=== PATIENT | female | born 1980 | race Caucasian/White ===

== ENCOUNTER 2018-05-21 14:05 | Observation (INO) | payer OTHER ==
[~2018-05-21] VITALS: Ht 152 cm; Wt 69.9 kg
[~2018-05-21 14:05] MED LIST: PREN-61 PO
[2018-05-21] MEDS ORDERED: RINGERS SOLUTION,LACTATED 1,000 ML IV SCH (14:30)
[2018-05-21 15:15] VITALS: BP 110/75
[2018-05-21 15:15] LABS: BASOPHILS % (AUTO) 0.4 % (0.0-2.0); EOSINOPHILS % (AUTO) 0.2 % (1.0-6.0); HEMATOCRIT 39.5 % (36-46); HEMOGLOBIN 13.6 g/dL (12.0-16.0); LYMPHOCYTES # (AUTO) 1.6 K/uL (1.0-4.8); LYMPHOCYTES % (AUTO) 16.2 % (22.0-44.0); MEAN CORPUSCULAR HEMOGLOBIN 30.1 pg (26.0-34.0); MEAN CORPUSCULAR HGB CONC 34.4 G/dL (31.0-37.0); MEAN CORPUSCULAR VOLUME 87 fL (80-100); MONOCYTES # (AUTO) 0.4 K/uL (0.1-1.0); MONOCYTES % (AUTO) 4.2 % (2.0-9.0); NEUTROPHILS # (AUTO) 7.6 K/uL (1.8-7.7); PLATELET COUNT (AUTO) 250 K/uL (150-450); RED BLOOD CELL COUNT(AUTO) 4.52 MIL/uL (4.00-5.20); RED CELL DISTRIBUTION WIDTH 13.4 % (11.5-14.5)
[2018-05-21] MEDS ORDERED: CABE0.5T2 PO (15:17)
[2018-05-21 15:23] LABS: ANION GAP 11 mmol/L (8-16); CALCIUM, TOTAL 9.1 mg/dL (8.8-10.5); CARBON DIOXIDE 22 mmol/L (22-29); CHLORIDE 105 mmol/L (98-107); CREATININE 0.41 mg/dL (0.60-1.30); GLOMERULAR FILTR. RATE CALC > 60 mL/min (>60); GLUCOSE,RANDOM 79 mg/dL (70-110); SODIUM SERUM 138 mmol/L (136-145); UREA NITROGEN, BLOOD 6 mg/dL (7-18)
[2018-05-21 15:29] LABS: ALANINE AMINOTRANSFERASE 24 U/L (12-78); ALBUMIN 2.7 g/dL (3.4-5.0); ALKALINE PHOSPHATASE 190 U/L (46-116); ASPARTATE AMINOTRANSFERASE 28 U/L (15-37); BILIRUBIN,TOTAL 0.4 mg/dL (0.1-1.0); TOTAL PROTEIN, SERUM 6.4 g/dL (6.4-8.2); URIC ACID 3.3 mg/dL (2.6-7.2)
== END 2018-05-21 16:25 | disposition home or self-care (01) ==
LOC: 4S 14:05
PROVIDERS: ADMIT Obstetrics & Gynecology; ATTEND Obstetrics & Gynecology
DX: O21.2 Late vomiting of pregnancy (principal); O24.419 Gestational diabetes mellitus in pregnancy, unspecified control; O26.893 Other specified pregnancy related conditions, third trimester; R03.0 Elevated blood-pressure reading, without diagnosis of hypertension; Z3A.37 37 weeks gestation of pregnancy
CPT/HCPCS: 36415; 76805; 80053; 84550; 85025; G0378

== ENCOUNTER 2018-05-27 06:37 | Inpatient (IN) | payer OTHER ==
[~2018-05-27] VITALS: Ht 154.9 cm; Wt 69.9 kg
[~2018-05-27 06:37] MED LIST changes: +CABE0.5T2 PO
[2018-05-27] MEDS ORDERED: RINGERS SOLUTION,LACTATED 1,000 ML IV ONE ×2 (06:38→07:36)
[2018-05-27] MEDS ORDERED: METOCLOPRAMIDE HCL 5 MG/ML 2 ML VIAL IVP ONE (06:45)
[2018-05-27] MEDS ORDERED: CITRIC ACID/SODIUM CITRATE 30 ML SOLUTION UDCUP PO ONE (06:45)
[2018-05-27 07:26] LABS: BASOPHILS % (AUTO) 0.4 % (0.0-2.0); EOSINOPHILS % (AUTO) 0.6 % (1.0-6.0); HEMOGLOBIN 13.5 g/dL (12.0-16.0); LYMPHOCYTES # (AUTO) 2.3 K/uL (1.0-4.8); LYMPHOCYTES % (AUTO) 27.6 % (22.0-44.0); MEAN CORPUSCULAR HEMOGLOBIN 30.3 pg (26.0-34.0); MEAN CORPUSCULAR HGB CONC 34.7 G/dL (31.0-37.0); MEAN CORPUSCULAR VOLUME 87 fL (80-100); MONOCYTES # (AUTO) 0.6 K/uL (0.1-1.0); NEUTROPHILS # (AUTO) 5.4 K/uL (1.8-7.7); NEUTROPHILS % (AUTO) 64.4 % (40.0-70.0); PLATELET COUNT (AUTO) 234 K/uL (150-450); RED BLOOD CELL COUNT(AUTO) 4.46 MIL/uL (4.00-5.20); RED CELL DISTRIBUTION WIDTH 13.1 % (11.5-14.5)
[2018-05-27] MEDS ORDERED: LIDOCAINE/PF 2% 5 ML VIAL ONE (07:36)
[2018-05-27] MEDS ORDERED: SODIUM CHLORIDE 0.9% 1,000 ML IV ONE (07:36)
[2018-05-27] MEDS ORDERED: BUPIVACAINE HCL/DEX-WATER/PF 0.75% 2 ML AMP ONE (07:36)
[2018-05-27 08:05] LABS: GLUCOMETER DEV NAME(LOC) 4S.; GLUCOSE,POINT OF CARE 68 MG/DL (70-110)
[2018-05-27] MEDS ORDERED: *PATIENT'S OWN MED [ENTER DRUG, DOSE, FREQUENCY IN COMMENTS] CLINICAL ONE ×2 (08:15→22:00)
[2018-05-27] MEDS ORDERED: BUPIVACAINE HCL/PF 0.5% 30 ML VIAL ONE (08:22)
[2018-05-27] MEDS ORDERED: BUPIVACAINE HCL/PF 0.25% 30 ML VIAL ONE (08:23)
[2018-05-27] MEDS ORDERED: HYDROmorphone 2 MG/ML SYRINGE IVP PRN (09:00)
[2018-05-27] MEDS ORDERED: MEPERIDINE-PF 25 MG/ML VIAL IVP PRN (09:00)
[2018-05-27] MEDS ORDERED: FentaNYL CITRATE-PF 100 MCG/2 ML VIAL IVP PRN ×2 (09:00→10:00)
[2018-05-27] MEDS ORDERED: NALOXONE HCL 0.4 MG/ML VIAL IVP PRN (10:00)
[2018-05-27] MEDS ORDERED: MORPHINE SULFATE 10 MG/ML SYRINGE IVP PRN (10:00)
[2018-05-27] MEDS: RINGERS SOLUTION,LACTATED 1,000 ML IV SCH ×2 (10:00→21:29)
[2018-05-27] MEDS ORDERED: DiphenhydrAMINE HCL 50 MG/ML VIAL IVP PRN (10:00)
[2018-05-27] MEDS ORDERED: NALBUPHINE HCL 10 MG/ML VIAL IVP PRN ×2 (10:00)
[2018-05-27] MEDS ORDERED: ONDANSETRON HCL 4 MG/2 ML VIAL IVP PRN (10:00)
[2018-05-27] MEDS ORDERED: OXYTOCIN 30 UNITS/LACT RINGERS 500 ML IV ONE (10:11)
[2018-05-27] MEDS ORDERED: ACETAMINOPHEN 1000 MG/ISO-OSM 100 ML IV ONE (10:14)
[2018-05-27] MEDS ORDERED: LANOLIN 7 GM OINTMENT TP PRN (10:15)
[2018-05-27] MEDS: ACETAMINOPHEN 1000 MG/ISO-OSM 100 ML IV SCH ×2 (10:16→18:31)
[2018-05-27] MEDS: KETOROLAC TROMETHAMINE 30 MG/ML VIAL IVP SCH ×2 (15:34→21:31)
[2018-05-27] MEDS ORDERED: OXYGEN THERAPY IH SCH ×3 (20:00)
[2018-05-27] MEDS ORDERED: MAGNESIUM HYDROXIDE SUSPENSION 30 ML UDCUP PO SCH (21:00)
[2018-05-27] MEDS ORDERED: CABERGOLINE 0.5 MG PO ONE (22:00)
[2018-05-28] MEDS ORDERED: OXYTOCIN 10 UNITS/ML VIAL IM ONE (05:39)
[2018-05-28] MEDS ORDERED: 0.9% SODIUM CHLORIDE 10 ML VIAL IVP ONE (05:39)
[2018-05-28] MEDS ORDERED: ONDANSETRON HCL 4 MG/2 ML VIAL IVP ONE (05:39)
[2018-05-28] MEDS ORDERED: LIDOCAINE/PF 2% 5 ML VIAL IM ONE (05:39)
[2018-05-28] MEDS ORDERED: EPHEDrine SULFATE 50 MG/ML VIAL IM ONE (05:39)
[2018-05-28] MEDS: OxyCODONE HCL/ACETAMINOPHEN 5-325 MG TABLET PO PRN ×3 (06:17→16:50)
[2018-05-28 06:30] LABS: BASOPHILS % (AUTO) 0.2 % (0.0-2.0); EOSINOPHILS % (AUTO) 0.4 % (1.0-6.0); HEMATOCRIT 33.2 % (36-46); HEMOGLOBIN 11.6 g/dL (12.0-16.0); LYMPHOCYTES % (AUTO) 20.6 % (22.0-44.0); MEAN CORPUSCULAR HEMOGLOBIN 30.7 pg (26.0-34.0); MEAN CORPUSCULAR HGB CONC 34.8 G/dL (31.0-37.0); MEAN CORPUSCULAR VOLUME 88 fL (80-100); MONOCYTES # (AUTO) 0.6 K/uL (0.1-1.0); MONOCYTES % (AUTO) 6.3 % (2.0-9.0); NEUTROPHILS # (AUTO) 6.9 K/uL (1.8-7.7); NEUTROPHILS % (AUTO) 72.5 % (40.0-70.0); PLATELET COUNT (AUTO)-OB 198 K/uL (150-450); RED BLOOD CELL COUNT(AUTO) 3.76 MIL/uL (4.00-5.20); RED CELL DISTRIBUTION WIDTH 13.1 % (11.5-14.5)
[2018-05-28] MEDS: IBUPROFEN 800 MG TABLET PO PRN ×2 (12:55→20:38)
[2018-05-29] MEDS: OxyCODONE HCL/ACETAMINOPHEN 5-325 MG TABLET PO PRN ×2 (00:54→07:37)
[2018-05-29] MEDS ORDERED: FentaNYL CITRATE-PF 100 MCG/2 ML VIAL IVP ONE (02:36)
[2018-05-29] MEDS ORDERED: MORPHINE SULFATE/PF 0.5 MG/ML 10 ML AMP IVP ONE (02:36)
[2018-05-29] MEDS: IBUPROFEN 800 MG TABLET PO PRN (07:37)
== END 2018-05-29 12:15 | disposition home or self-care (01) | DRG 788 ==
LOC: 4S 06:37 → PREOBSVTOIN 06-12 06:52
PROVIDERS: ADMIT Obstetrics & Gynecology; ATTEND Obstetrics & Gynecology
PROC: 10D00Z1 Extraction of Products of Conception, Low, Open Approach (ICD-10-PCS; principal; 2018-05-27)
DX: O34.211 Maternal care for low transverse scar from previous cesarean delivery (principal); Z3A.39 39 weeks gestation of pregnancy; Z37.0 Single live birth; O69.81X0 Labor and delivery complicated by cord around neck, without compression, not applicable or unspecified
CPT/HCPCS: 86850; 86900; 86901; 87081; J0131; J0690; J1885; J2274; J2405; J2590; J2765; J3010; J3490; J7030; J7120